=== PATIENT | male | born 1980 | race Caucasian/White ===

== ENCOUNTER 2023-08-30 09:37 | Day surgery (SDC) | payer OTHER ==
[2023-08-30] MEDS ORDERED: Lactated Ringers 1,000 ML IV SCH (10:00)
[2023-08-30] MEDS ORDERED: Midazolam 1 MG/ML 2 ML SDV ONE (10:59)
[2023-08-30] MEDS ORDERED: Propofol 200 MG/20 ML SDV ONE ×2 (10:59→12:27)
[2023-08-30] MEDS ORDERED: fentaNYL 50 MCG/ML SDV ONE (10:59)
== END 2023-08-30 13:45 | disposition home or self-care (01) ==
LOC: JP.SDS 09:37
PROVIDERS: ATTEND Student in an Organized Health Care Education/Training Program
DX: Z12.11 Encounter for screening for malignant neoplasm of colon (principal); D12.0 Benign neoplasm of cecum; D12.5 Benign neoplasm of sigmoid colon; K62.1 Rectal polyp; K57.30 Diverticulosis of large intestine without perforation or abscess without bleeding; H83.09 Labyrinthitis, unspecified ear; Z88.8 Allergy status to other drugs, medicaments and biological substances
CPT/HCPCS: 45380; 45385; J2250; J2704; J3010; J7120